=== PATIENT | female | born 1995 | race Caucasian/White ===

== ENCOUNTER 2019-08-04 10:31 | Emergency (ER) | payer OTHER, SELFPAY ==
[2019-08-04 10:41] VITALS: BP 122/64; PULSE 76; RESP 16; TEMP 37.2; O2SAT 98
--- NOTE | 2019-08-04 10:53 | ED.GENADULT ---
HPI - General Adult General Chief complaint: Unspecified Stated complaint: Hemorrhoids/L/Hand numb Time Seen by Provider: 08/04/19 10:53 History of Present Illness HPI narrative: 23-year-old says she 26 weeks female presents with complaints of hemorrhoids 23-year-old Related Data Home Medications Medication Instructions Recorded Confirmed vit no.[id number] 1 tablet PO DAILY 08/04/19 08/04/19 [Classic ] Allergies Allergy/AdvReac Type Severity Reaction Status Date / Time morphine Allergy Unknown Hives Verified 08/04/19 10:48 Course Vital Signs Vital signs: Vital Signs Temperature 37.2 C 08/04/19 10:41 Pulse Rate 76 08/04/19 10:41 Respiratory Rate 16 08/04/19 10:41 Blood Pressure 122/64 08/04/19 10:41 Pulse Oximetry 98 08/04/19 10:41 Temperature 37.2 C 08/04/19 10:41 Pulse Rate 76 08/04/19 10:41 Respiratory Rate 16 08/04/19 10:41 Blood Pressure 122/64 08/04/19 10:41 Pulse Oximetry 98 08/04/19 10:41 Medical Decision Making Vital Signs Vital Signs: Vital Signs Temperature 37.2 C 08/04/19 10:41 Pulse Rate 76 08/04/19 10:41 Respiratory Rate 16 08/04/19 10:41 Blood Pressure 122/64 08/04/19 10:41 Pulse Oximetry 98 08/04/19 10:41 Temperature 37.2 C 08/04/19 10:41 Pulse Rate 76 08/04/19 10:41 Respiratory Rate 16 08/04/19 10:41 Blood Pressure 122/64 08/04/19 10:41 Pulse Oximetry 98 08/04/19 10:41 Discharge Plan Discharge Clinical Impression: External hemorrhoids Patient Disposition: Home, Self-Care Condition: Stable Instructions: Hemorrhoids (ED) Additional Instructions: -Eat lots of fruits, vegetables, and other foods with fiber. Fiber helps to increase bowel movements. You need 20 to 35 grams of fiber a day to keep your bowel movements regular. If you do not get enough fiber from your diet, you can take fiber powders, wafers, or pills. These include psyllium seed (sample brand names: Metamucil, Konsyl), methylcellulose (sample brand name: Citrucel), polycarbophil (sample brand name: FiberCon), and wheat dextrin (sample brand name: Benefiber). -Take medicines called stool softeners such as docusate sodium (sample brand names: Colace, Dulcolax). These medicines increase the number of bowel movements you have. They are safe to take and they can prevent problems later. -Refrain from straining or lingering on the toilet. -Regular physical exercise. -Aoid medications that can cause constipation or diarrhea. -Limit their intake of fatty foods and alcohol, which can exacerbate constipation. -Sitz bath 3-4 times a day as well FOLLOW UP WITH YOUR PRIMARY MD, CALL IN AM TO SCHEDULE AN APPOINTMENT. SEEK EMERGENCY ROOM CARE FOR NUMBNESS OR TINGLING OF EXTREMITIES PLEASE SEEK MEDICAL ATTENTION IF YOU HAVE SHORTNESS OF BREATH OR PAIN WITH BREATHING, FEVER OF 100.4 F ORAL OR HIGHER, NOT BETTER WITH FEVER MEDICATION, INCREASE RECTAL PAIN, RECTAL BLEEDING, ABDOMINAL OR BACK PAIN, REPEATED VOMITING; UNABLE TO KEEP LIQUIDS DOWN, UNABLE TO URINATE, COUGHING UP BLOOD OR INCREASING AMOUNTS OF COLORED SPUTUM, WEAKNESS, DROWSINESS, HEADACHE, FACIAL PAIN, EAR PAIN OR STIFF NECK, LOWER LEG SWELLING, TENDERNESS, REDNESS OR PAIN. Prescriptions: No Action Classic 28 mg iron- 800 mcg Tablet 1 tablet PO DAILY RF: 0 Follow-up/Referrals: Lorraine,Cheryl Peng MD [Primary Care Provider] - Time of Disposition: 11:18
--- NOTE | 2019-08-04 11:26 | ED.GENADULT ---
HPI - General Adult General Chief complaint: Unspecified Stated complaint: Hemorrhoids/L/Hand numb Time Seen by Provider: 08/04/19 10:53 Source: patient and RN notes reviewed Mode of arrival: ambulatory Limitations: no limitations History of Present Illness HPI narrative: 23-year-old 26 weeks female presents with complaints hemorrhoids for the past 5 years. Warm sitz bath, , and Tucks with relief. Symptoms increased over the last 24 hours with heart rate and increased pain. Denies rectal bleeding. Denies inflammatory bowel disease, or rectal polyps. Denies difficulty having bowel movements, last bowel movement was yesterday a.m. without any difficulties and has had bowel movements daily. Denies rectal trauma. Denies night sweats, fever, or weight loss, tenesmus, constipation, or diarrhea. Denies fever or chills. Denies dysuria or hematuria. Denies nausea, vomiting, abdominal pain. Tolerating po intake well. Denies history of hemorrhoids, Family history of rectal bleeding. Denies nausea or vomiting. Complains of numbness and swelling to left anterior hand and fourth and fifth fingers (ring and baby) for approximately 30-40 minutes this am. No treatment. Swelling and numbness went away on is own. Denies known injuries or trauma. Denies weakness, numbness and tingling at this time. Denies radiating pain. Denies immobility. Denies discoloration. Denies exacerbating factors. Dominant hand is Right hand. Some parts of this dictation were generated by voice recognition software and may contain typographical and/or grammatical inaccuracies. ROS: CONSTITUTIONAL: Denies fever, chills, sweats. EYES: Denies visual changes, redness, discharge. ENT: Denies rhinorrhea, congestion, sore throat, otalgia. CARDIOVASCULAR: Denies chest pain, palpitations, edema. RESPIRATORY: Denies dyspnea, wheezing, cough. GASTROINTESTINAL: Denies abdominal pain, nausea, vomiting, diarrhea. Complains of hemorrhoids. GENITOURINARY: Denies dysuria, hematuria, abnormal discharge SKIN: Denies rash or itching. MUSCULOSKELETAL: Denies acute back pain or myalgia. Complains of numbness and swelling to left anterior hand and fourth and fifth fingers (ring and baby). NEUROLOGIC: Denies numbness or focal weakness. PSYCHIATRIC: Denies anxiety or depression. PMFSH: At time of signature, agree with nurse past medical, surgical, social, and family history. There is no relevant family history pertinent to the presenting complaint. I reviewed PM today at 10:55 Medical History: History Hemorrhoids Surgical History: Tonsillectomy, Adenoidectomy, Dilation and Curettage Family Medical History No significant Family History Social History Smokes 1 PPD for 8 years, Denies Alcohol usage, Smokes marijuana, Unemployed Exam: GENERAL: This is a well-nourished, well-developed patient, in no apparent distress. Talks in full sentences and ambulates with steady gait without dyspnea. HEAD: normocephalic, atraumatic. EYES: PERRL. Sclera clear/white. Vision is grossly intact. EARS: External ears normal, auditory canals clear and without drainage, TMs normal without perforation. Hearing grossly intact. NOSE: External nose normal with no obvious nasal discharge, nares without redness, no rhinorrhea. THROAT: Mucous membranes moist, posterior pharynx clear. NECK: Neck supple, non-tender without lymphadenopathy, masses or thyromegaly. CARDIOVASCULAR: Regular rate and rhythm without murmurs, gallops, or rubs. RESPIRATORY: Clear to auscultation. Breath sounds equal bilaterally. No wheezes, rales, or rhonchi. GASTROINTESTINAL: Abdomen soft, non-tender, nondistended. Bowel sounds are active. No hepato-splenomegaly, or palpable masses. No guarding. RECTAL EXAM: Assessment completed with nurse replanting machine operator with Kira on LT lateral decubitus: skin intact, 2 small soft external hemorrhoids, no erythema, no fissures, skin tags, or discharge noted. BRENNEN noted normal sphincter tone and no bleeding.
--- NOTE | 2019-08-04 11:32 | PC.NURSE ---
1100 patient has an external hemorrhoid. no bleeding noted. Left hand is not swollen or painful at this time. No numbness in hand at this time.
== END 2019-08-04 11:30 | disposition home or self-care (01) ==
PROVIDERS: Emergency Provider Nurse Practitioner Family; PCP Family Medicine
DX: O22.42 Hemorrhoids in pregnancy, second trimester (principal); Z3A.26 26 weeks gestation of pregnancy
CPT/HCPCS: 99211; G0463

== ENCOUNTER 2020-06-16 14:24 | Emergency (ER) | payer OTHER, SELFPAY ==
[2020-06-16 14:42] VITALS: BP 108/85; PULSE 76; RESP 18; TEMP 36.2; O2SAT 100
--- NOTE | 2020-06-16 14:47 | ED.GENADULT ---
HPI - General Adult General Chief complaint: Medical Clearance Stated complaint: hemorrhoids Time Seen by Provider: 06/16/20 14:47 Source: patient and RN notes reviewed Mode of arrival: ambulatory Limitations: no limitations History of Present Illness HPI narrative: 24-year-old female presents with complaints of hemorrhoids for the past 6 years. Kira reports increasing symptoms over the past 3 days. Warm sitz baths, tucks, witch jaun's, and suppositories without relief. Denies inflammatory bowel disease or rectal polyps. LBM 06/15/20, had to push to assist with removal of stool. Denies rectal intercourse. Denies fever, weight loss, tenesmus, or diarrhea. Denies dysuria. LMP unknown due to Depo-Provera injections, last in April which patient complains of bleeding since then. The patient reports she have not been diagnosed with COVID-19. The patient reports she is not waiting for the results of a COVID-19 lab test. The patient reports she do not have chills, weakness, or fatigue. The patient reports she do not have a new or worsening cough or shortness of breath. Denies chest pain. The patient reports she do not have any rhinorrhea, congestion, sore throat, loss of taste, nausea, vomiting, abdominal pain, and diarrhea. Tolerating po intake well. Denies recent traveling. Denies concerns for COVID-19 or exposures been home with limited outdoor exposure except for essential household needs, work, and return home. At this time, patient is not suspected of having COVID-19. Some parts of this dictation were generated by voice recognition software and may contain typographical and/or grammatical inaccuracies. Related Data Home Medications Medication Instructions Recorded Confirmed medroxyprogesterone 150 mg IM USEASDIRECTD 06/16/20 06/16/20 quetiapine 25 mg PO DAILY 06/16/20 06/16/20 Allergies Allergy/AdvReac Type Severity Reaction Status Date / Time morphine Allergy Intermediate Swelling Verified 06/16/20 14:40 Review of Systems Review of Systems: Narrative: CONSTITUTIONAL: Denies fever, chills, sweats. EYES: Denies visual changes, redness, discharge. ENT: Denies rhinorrhea, congestion, sore throat, otalgia. CARDIOVASCULAR: Denies chest pain, palpitations, edema. RESPIRATORY: Denies dyspnea, wheezing, cough. GASTROINTESTINAL: Denies abdominal pain, nausea, vomiting, diarrhea. Complains of hemorrhoids. SKIN: Denies rash or itching. MUSCULOSKELETAL: Denies acute back pain, joint pain, or myalgia. NEUROLOGIC: Denies numbness or focal weakness. PSYCHIATRIC: Denies anxiety or depression. All other systems reviewed are negative, except as documented in HPI and below. REPLACED BY [facility] Past Medical History Medical History (Updated 06/16/20 @ 15:20 by MILTON Skelton) Hemorrhoids Normal vaginal delivery X2 Surgical History Surgical History (Updated 06/16/20 @ 15:06 by MILTON Skelton) History of tonsillectomy Family History Family History (Updated 06/16/20 @ 15:08 by MILTON Skelton) Father Unknown family medical history Mother , Drug overdose Medical history unknown Social History Social History (Updated 06/16/20 @ 15:09 by MILTON Skelton) Years smoked: 8 Smoking status: Current every day smoker Tobacco type: cigarettes Second hand tobacco smoke exposure: No Alcohol intake: never Substance use: never Living arrangements: with family Additional living arrangements comments: lives with grandmother and children Occupation/Education: unemployed Gender identity (if verbalized by the patient): Female Sexual Orientation (if Verbalized by the Patient): Straight or Heterosexual Comments At time of signature, agree with nurse past medical, surgical, social, and family history. There is relevant patient's past medical history pertinent to the presenting complaint, no relevant family history pertinent to the presenting complaint. Exam Karsten
[2020-06-16] MEDS: KETOROLAC (*BKC) 60 MG/2 ML VIAL IM (15:03)
== END 2020-06-16 15:33 | disposition home or self-care (01) ==
PROVIDERS: Emergency Provider Nurse Practitioner Family
DX: K64.8 Other hemorrhoids (principal); F17.210 Nicotine dependence, cigarettes, uncomplicated
CPT/HCPCS: 96372; 99213; G0463; J1885

== ENCOUNTER 2020-11-09 16:09 | Emergency (ER) | payer OTHER, SELFPAY ==
--- NOTE | ~2020-11-09 | XR_ITS ---
EXAMINATION: XR chest 2V DATE: 11/09/2020 17:33 INDICATION: Anterior chest pain and back pain. TECHNIQUE: PA and lateral views of the chest were obtained. COMPARISON: Thoracic spine radiographs dated 02/24/2015 FINDINGS: The lungs remain clear with no focal airspace opacities, pulmonary edema, pleural effusion or pneumot horax. The cardiomediastinal silhouette is normal. Chronic mild anterior wedging of a midthoracic nidhi tebral body, likely T6. IMPRESSION: 1. No acute cardiopulmonary disease. Reviewed, dictated and finalized at location A.
--- NOTE | 2020-11-09 16:16 | ED.CHESTPAIN ---
HPI - Chest Pain General Chief Complaint: Unspecified Stated Complaint: Rib Pain Source: patient and RN notes reviewed Limitations: no limitations History of Present Illness HPI narrative: The Covid unvaccinated patient, who is a marijuana cigarette smoker/nondrinker, presents with right rib/side pain. Patient states she has 1/2-week history of right rib pain associated with chills, possible fever po T100.1. Her children were ill within the last week with temperatures 102?3 F. No cough, wheeze,fever > 100.5, , loss of taste/smell, S OB, wheezing, vomiting/diarrhea, frequency/dysuria/hematuria, recent trips, calf pain/edema, BCPs [she is on IUD]. Patient advised to go to hospital for higher testing [blood, imaging] which she declines/ defers to later- so will treat broadly. Related Data Home Medications Medication Instructions Recorded Confirmed medroxyprogesterone 150 mg IM USEASDIRECTD 06/16/20 06/16/20 quetiapine 25 mg PO DAILY 06/16/20 06/16/20 Allergies Allergy/AdvReac Type Severity Reaction Status Date / Time morphine Allergy Intermediate Swelling Verified 06/16/20 14:40 Review of Systems Review of Systems: Narrative: General/Constitutional: No weight loss, REPORTS POSSIBLE fever Eyes: N0: Redness,discharge Ears/Nose/Throat: No: Epistaxis,ear discharge Respiratory: Denies: Hemoptysis Gastrointestinal: No Vomiting, Bleeding-rectal Skin: No Lumps, eruption Neurologic: No Focal Weakness,Sz Hematologic: Denies: Petechiae/Purpura Psychiatric: No: Suicida ideationl All Other Systems: Reviewed and Negative [facility] Past Medical History Medical History Hemorrhoids Normal vaginal delivery X2 Surgical History Surgical History History of tonsillectomy Family History Family History Father Unknown family medical history Mother , Drug overdose Medical history unknown Social History Social History Years smoked: 8 Smoking status: Current every day smoker Tobacco type: cigarettes Second hand tobacco smoke exposure: No Alcohol intake: never Substance use: never Additional living arrangements comments: lives with grandmother and children Gender identity (if verbalized by the patient): Female Comments At time of signature, agree with nursing past medical, surgical, social and family history. There is no relevant family history pertinent to the presenting complaint Exam Narrative: Exam Narrative: General Appearance: Well appearing, No distress, Conjunctiva clear Mouth/Throat: Normal appearing, Normal lips Supple Respiratory: Airway patent, No respiratory distress CTA; right inferior scapular rib tenderness Cardiovascular: RRR Abdomen: Soft, Non-tender, No massess, Skin: Warm, Dry Neurological: A&O x3, CN II-X intact Psychiatric: Normal mood, Normal affect Course Course Emergency Course: Films visualized, interpreted by radiologist, agree, normal see report Vital Signs Vital signs: Vital Signs Temperature 99.2 F 11/09/20 16:18 Pulse Rate 94 11/09/20 16:18 Respiratory Rate 26 H 11/09/20 16:18 Blood Pressure 124/77 11/09/20 16:18 Pulse Oximetry 100 11/09/20 16:18 Temperature 99.2 F 11/09/20 16:18 Pulse Rate 94 11/09/20 16:18 Respiratory Rate 26 H 11/09/20 16:18 Blood Pressure 124/77 11/09/20 16:18 Pulse Oximetry 100 11/09/20 16:18 MDM - Chest Pain Lab Data Labs: Urine Glucose Negative Reference Range: Negative Urine Bilirubin Negative Reference Range: Negative Urine Ketone Negative Reference Range: Negative Urine Sp
[2020-11-09 16:18] VITALS: BP 124/77; PULSE 94; RESP 26; TEMP 37.3; O2SAT 100
[2020-11-09] MEDS: KETOROLAC (*BKC) 60 MG/2 ML VIAL IM (18:19)
== END 2020-11-09 18:26 | disposition home or self-care (01) ==
PROVIDERS: Emergency Provider Emergency Medicine
DX: R07.81 Pleurodynia (principal); F17.210 Nicotine dependence, cigarettes, uncomplicated
CPT/HCPCS: 71046; 81003; 96372; 99213; G0463; J1885

== ENCOUNTER 2020-11-09 21:48 | Emergency (ER) | payer OTHER, SELFPAY ==
[2020-11-09 22:01] VITALS: BP 127/57; PULSE 81; RESP 18; TEMP 36.4; O2SAT 100
--- NOTE | 2020-11-09 22:07 | ECG_ITS ---
Measurements Intervals [place] Rate: 78 P: 66 VA: 125 QRS: 80 QRSD: 81 T: 52 QT: 358 QTc: 409 Interpretive Statements SINUS RHYTHM WITH SINUS ARRHYTHMIA BASELINE ARTIFACT- I, II, AVR NORMAL ECG Electronically Signed On 11-10-2020 7:07:52 CDT by Roby Thorne D.O.
[2020-11-09 22:22] LABS: Basophils Percent Auto 0.5 % (0.2-1.2); Hematocrit 34.4 % (37.0-47.0); Hemoglobin 11.9 g/dL (12.0-15.0); Immature Granulocyte Absolute 0.01 K/mm3 (0.00-0.031); Immature Granulocyte Percent A 0.3 % (0-0.5); Lymphocytes Absolute Auto 1.48 K/mm3 (0.9-3.2); Lymphocytes Percent Auto 38.3 % (18.3-44.2); Mean Corpuscular HGB Conc 34.6 g/dl (32-36); Mean Corpuscular Hemoglobin 29.8 pg (26-34); Mean Platelet Volume 10.5 fl (7.4-10.4); Monocytes Absolute Auto 0.6 K/mm3 (0.1-0.6); Monocytes Percent Auto 14.8 % (2.6-8.5); Neutrophils Absolute Auto 1.7 K/mm3 (1.3-6.7); Neutrophils Percent Auto 45.1 % (45.5-73.1); Platelet Count Result 170 k/mm3 (150-375); White Blood Count 3.9 K/mm3 (4.5-10.0)
[2020-11-09 22:32] LABS: Anion Gap 11 mmol/L (8-16); Blood Urea Nitrogen 6 mg/dL (7-17); Calcium 9.2 mg/dL (8.4-10.2); Carbon Dioxide 19 mmol/L (22-30); Chloride 113 mmol/L (98-107); Estimated CRCL calculation 116 ml/min; Estimated Glomerular Filt Rate > 60; Glucose 111 mg/dL (65-105); Potassium 3.6 mmol/L (3.4-5.0); Sodium 143 mmol/L (137-145)
[2020-11-09 22:44] LABS: Troponin I < 0.012 ng/mL (0.000-0.034)
[2020-11-09 22:47] LABS: Prothrombin Time 13.9 Seconds (11.1-14.7)
[2020-11-09 22:48] LABS: Partial Thromboplastin Time 31.7 SECONDS (22.3-36.8)
[2020-11-09 22:59] LABS: D Dimer 0.27 ug/mL (<0.48)
[2020-11-10] VITALS: BP 122/79; PULSE 58; RESP 16; O2SAT 100
--- NOTE | 2020-11-10 00:05 | ED.GENADULT ---
HPI - General Adult General Chief complaint: Shortness of Breath/Dyspnea Stated complaint: SOB, CP Time Seen by Provider: 11/09/20 23:53 Source: patient Mode of arrival: ambulatory Limitations: no limitations History of Present Illness HPI narrative: 24-year-old with no major medical problems here with complaints of midsternal chest pain on and off since last 1 day. Patient states that she went to [facility] had an x-ray done was told that it could be a pleuritic pain versus blood clot. Onset (ago): day(s) (1) Location: chest Severity: mild Quality: aching Exacerbating factors: other (Breathing) Associated symptoms: denies other symptoms Related Data Home Medications Medication Instructions Recorded Confirmed medroxyprogesterone 150 mg IM USEASDIRECTD 06/16/20 06/16/20 quetiapine 25 mg PO DAILY 06/16/20 06/16/20 Allergies Allergy/AdvReac Type Severity Reaction Status Date / Time morphine Allergy Intermediate Swelling Verified 06/16/20 14:40 Review of Systems Review of Systems: All systems reviewed & are unremarkable except as noted in HPI and below Constitutional: Constitutional: Reports no additional constitutional complaints Eyes: Eyes: Reports no additional eye complaints ENT: Reports system reviewed and no additional complaints, except as documented Cardiovascular: Cardiovascular: Reports no additional cardiovascular complaints Respiratory: Respiratory: Reports as per HPI Gastrointestinal: Gastrointestinal: Reports no additional gastrointestinal complaints Musculoskeletal: Musculoskeletal: Reports no additional musculoskeletal complaints Neurologic: Reports system reviewed and no additional complaints, except as documented Psychiatric: Psychiatric: Reports no additional psychiatric complaints PMFSH Past Medical History Medical History Hemorrhoids Normal vaginal delivery X2 Surgical History Surgical History History of tonsillectomy Family History Family History Father Unknown family medical history Mother , Drug overdose Medical history unknown Social History Social History Years smoked: 8 Smoking status: Current every day smoker Tobacco type: cigarettes Second hand tobacco smoke exposure: No Alcohol intake: never Substance use: never Additional living arrangements comments: lives with grandmother and children Gender identity (if verbalized by the patient): Female Exam Narrative: Exam Narrative: GENERAL: Well-appearing, well-nourished, and in no acute distress. HEAD: Normocephalic, atraumatic. EYES: PERRLA and EOMI. ENT: Nares clear, no rhinorrhea or epistaxis. Mucous membranes moist. NECK: Supple. CHEST: Clear to auscultation. No respiratory distress. HEART: Regular rate and rhythm. No murmur heard. Normal peripheral pulses. ABDOMEN: Soft, nontender, nondistended, normal active bowel sounds. EXTREMITIES: Normal range of motion. No edema. SKIN: Warm, dry, no rash. NEURO: No focal deficits. Alert and oriented x3. PSYCH: Normal mood and affect. Course Course Emergency Course: I discussed lab work and x-ray findings from yesterday with the patient. Her pain is more musculoskeletal versus pleuritic. Advised her to continue home medication. Vital Signs Vital signs: Vital Signs Temperature 36.4 C 11/09/20 22:01 Pulse Rate 81 11/09/20 22:01 Respiratory Rate 18 11/09/20 22:01 Blood Pressure 127/57 L 11/09/20 22:01 Pulse Oximetry 100 11/09/20 22:01 Temperature 36.4 C 11/09/20 22:01 Pulse Rate 81 11/09/20 22:01 Respiratory Rate 18 11/09/20 22:01 Blood Pressure 127/57 L 11/09/20 22:01 Pulse Oximetry 100 11/09/20 22:01 Medical Decision Making Vital Signs Vital Signs: Vital Signs Temper
== END 2020-11-10 00:20 | disposition home or self-care (01) ==
PROVIDERS: Emergency Provider Family Medicine
DX: R07.81 Pleurodynia (principal); F17.210 Nicotine dependence, cigarettes, uncomplicated
CPT/HCPCS: 36415; 71046; 80048; 81003; 84484; 85025; 85380; 85610; 85730; 93005; 96372; 99284; J1885

== ENCOUNTER 2021-02-18 11:12 | Emergency (ER) | payer OTHER, SELFPAY ==
[2021-02-18 12:06] VITALS: BP 117/69; PULSE 64; RESP 18; TEMP 36.4; O2SAT 100
--- NOTE | 2021-02-18 12:42 | ED.URI ---
HPI - URI/Sore Throat General Chief Complaint: Upper Respiratory Infection Stated Complaint: sore throat History of Present Illness HPI Narrative: This is a 25-year-old female comes in complaining of a headache states that it started 3 days ago/she has been having a cough runny nose patient denies taking anything except for some [place] denies any fever no nausea no vomiting no diarrhea. Related Data Home Medications Medication Instructions Recorded Confirmed quetiapine 25 mg PO DAILY 06/16/20 06/16/20 quetiapine 02/18/21 Allergies Allergy/AdvReac Type Severity Reaction Status Date / Time morphine Allergy Intermediate Swelling Verified 06/16/20 14:40 Review of Systems Review of Systems: ENT: Cough, congestion, sore throat All systems reviewed & are unremarkable except as noted in HPI and below PMFSH Past Medical History Medical History Hemorrhoids Normal vaginal delivery X2 Surgical History Surgical History History of tonsillectomy Family History Family History Father Unknown family medical history Mother , Drug overdose Medical history unknown Social History Social History Years smoked: 8 Smoking status: Current every day smoker Tobacco type: cigarettes Second hand tobacco smoke exposure: No Alcohol intake: never Substance use: never Additional living arrangements comments: lives with grandmother and children Gender identity (if verbalized by the patient): Female Sexual Orientation (if Verbalized by the Patient): Straight or Heterosexual Comments At time as signature, I have reviewed and agree with nursing past medical, social, surgical and family history. Please see nursing chart for further information. There is no relevant family history pertinent to the presenting complaint. Exam Narrative: GENERAL:Well-appearing, well-nourished, and in no acute distress. HEAD:Normocephalic, atraumatic. EYES: PERRLA and EOMI. ENT: Nares clear, mild rhinorrhea no epistaxis. Mucous membranes moist. Pharyngeal erythema NECK: Supple. CHEST: Clear to auscultation. No respiratory distress. HEART: Regular rate and rhythm. ABDOMEN: Soft, nontender, nondistended, normal active bowel sounds. EXTREMITIES: Normal range of motion. No edema. SKIN: Warm, dry, no rash. NEURO: No focal deficits. Alert and oriented x3. Course RN CCU/PA Physician Supervision Strep negative Vital Signs Vital signs: Vital Signs Temperature 97.5 F L 02/18/21 12:06 Pulse Rate 64 02/18/21 12:06 Respiratory Rate 18 02/18/21 12:06 Blood Pressure 117/69 02/18/21 12:06 Pulse Oximetry 100 02/18/21 12:06 Temperature 97.5 F L 02/18/21 12:06 Pulse Rate 64 02/18/21 12:06 Respiratory Rate 18 02/18/21 12:06 Blood Pressure 117/69 02/18/21 12:06 Pulse Oximetry 100 02/18/21 12:06 MDM - URI/Sore Throat Differential Diagnosis Differential diagnosis: Likely upper respiratory infection, croup, otitis media, sinusitis, viral infection, bronchitis, influenza and pharyngitis Lab Data Labs: Strep Screen Presumptive Negative *(Reference Range: Negative)* Discharge Plan Discharge Clinical Impression: Viral infection Allergic rhinitis Qualifiers: Allergic rhinitis trigger: unspecified Allergic rhinitis seasonality: seasonal Qualified Code(s): J30.2 - Other seasonal allergic rhinitis Patient Disposition: Home, Self-Care Condition: Stable Instructions: Antibiotic Form, Allergic Rhinitis (ED), Viral Syndrome (ED) Additional Instructions: Viral illness may last between 7-12days; antibiotic is NOT recommended at this time. Recommend antihistamine such as Benadryl at night time and Claritin/Zyrtec/Trini d
== END 2021-02-18 13:08 | disposition home or self-care (01) ==
PROVIDERS: Emergency Provider Nurse Practitioner Family
DX: J30.2 Other seasonal allergic rhinitis (principal); B34.9 Viral infection, unspecified; F17.210 Nicotine dependence, cigarettes, uncomplicated
CPT/HCPCS: 87081; 87880; 99213; G0463

== ENCOUNTER 2021-03-09 12:54 | Emergency (ER) | payer OTHER, SELFPAY ==
[2021-03-09 13:02] VITALS: BP 117/67; PULSE 76; RESP 16; TEMP 37.1; O2SAT 99
--- NOTE | 2021-03-09 13:47 | ED.GENADULT ---
HPI - General Adult General Chief complaint: Unspecified Stated complaint: hemorrhoids Source: patient Mode of arrival: ambulatory Limitations: no limitations History of Present Illness HPI narrative: Patient is a 25 year old female who presents complaining of hemorrhoids. Patient reports increased pain over the past week. She reports using multiple [id number]-[id number] hemorrhoid creams and treatments without relief. Patient has had the same problems in the past and reports initially seeing a surgeon but not doing follow-up appointment. Patient is tearful and uncomfortable. MD complaint: Hemorrhoid Related Data Home Medications Medication Instructions Recorded Confirmed quetiapine 25 mg PO DAILY 06/16/20 03/09/21 Allergies Allergy/AdvReac Type Severity Reaction Status Date / Time morphine Allergy Intermediate Swelling Verified 03/09/21 13:01 Review of Systems Review of Systems: CONSTITUTIONAL: Denies fever, chills, or sweats. EYES: Denies visual changes, redness, or discharge. ENT: Denies rhinorrhea, congestion, sore throat, or otalgia. CARDIOVASCULAR: Denies chest pain, palpitations, or edema. RESPIRATORY: Denies cough or dyspnea. GASTROINTESTINAL: Denies abdominal pain, nausea, vomiting, or diarrhea. Reports hemorrhoid GENITOURINARY: Denies dysuria or hematuria. SKIN: Denies rash or itching. MUSCULOSKELETAL: Denies back pain, joint pain, or myalgia. NEUROLOGIC: Denies headache, numbness, dizziness, or weakness. PSYCHIATRIC: Denies anxiety or depression. [facility] Past Medical History Medical History Hemorrhoids Normal vaginal delivery X2 Surgical History Surgical History History of tonsillectomy Family History Family History Father Unknown family medical history Mother , Drug overdose Medical history unknown Social History Social History Years smoked: 8 Smoking status: Current every day smoker Tobacco type: cigarettes Second hand tobacco smoke exposure: No Alcohol intake: never Substance use: never Additional living arrangements comments: lives with grandmother and children Gender identity (if verbalized by the patient): Female Sexual Orientation (if Verbalized by the Patient): Straight or Heterosexual Comments At the time of signature, I have reviewed and agree with nursing past medical, surgical, social, and family history unless otherwise noted. Please see nursing chart for further information. There is no relevant family history pertinent to the presenting complaint. Exam Narrative: GENERAL: Well-appearing, well-nourished, and in no acute distress. HEAD: Normocephalic, atraumatic. EYES: EOMI. No redness or drainage. Conjunctiva are normal. ENT: Mucous membranes pink and moist. CHEST: No respiratory distress. HEART: Regular rate and rhythm. GI: Soft, nontender without rebound, or guarding. No distention. Bowel sounds normal in all quadrants. Rectal: Moderate sized external hemorrhoid, no erythema, no fissures, skin tags, bleeding or discharge noted. MUSCULOSKELETAL: No bony tenderness. EXTREMITIES: Normal range of motion. No edema. SKIN: Warm, dry, no rash. NEURO: No focal deficits. Alert and oriented x3. Gait steady. PSYCH: Normal affect. No signs of depression or anxiety. Course Vital Signs Vital signs: Vital Signs Temperature 37.1 C 03/09/21 13:02 Pulse Rate 76 03/09/21 13:02 Respiratory Rate 16 03/09/21 13:02 Blood Pressure 117/67 03/09/21 13:02 Pulse Oximetry 99 03/09/21 13:02 Temperature 37.1 C 03/09/21 13:02 Pulse Rate 76 03/09/21 13:02 Respiratory Rate 16 03/09/21 13:02 Blood Pressure 117/67 03/09/21 13:02 Pulse Oximetry 99 03/09/21 13:02 Reviewed Medical Decision Making Macey
== END 2021-03-09 14:11 | disposition home or self-care (01) ==
PROVIDERS: Emergency Provider Nurse Practitioner
DX: K64.4 Residual hemorrhoidal skin tags (principal); F17.210 Nicotine dependence, cigarettes, uncomplicated
CPT/HCPCS: 99213; G0463

== ENCOUNTER 2021-06-13 14:30 | Emergency (ER) | payer OTHER, SELFPAY ==
[2021-06-13 14:39] VITALS: BP 132/82; PULSE 73; RESP 18; TEMP 36.7; O2SAT 100
[2021-06-13 14:40] VITALS: BP 132/82; PULSE 73; RESP 18; TEMP 36.7; O2SAT 100
--- NOTE | 2021-06-13 14:42 | ED.EAR ---
HPI - Ear Problem General Chief complaint: Ear Stated complaint: ear pain Time Seen by Provider: 06/13/21 14:42 Source: patient, RN notes reviewed and old records reviewed Mode of arrival: ambulatory Limitations: no limitations History of Present Illness HPI Narrative: 25-year-old female presents to the [facility] with bilateral ear pain. Patient starts about a week ago she was cleaning out her left ear with a Howard pin when she started having some severe pain. States pain has since moved to her right ear. Has a history of depression and a tonsillectomy. Denies fevers. No nausea vomiting or diarrhea. No chest pain or abdominal pain MD Complaint: ear pain, ear discharge, decreased hearing and foreign body Location: bilateral Duration: constant Relieving factors: nothing Related Data Home Medications Medication Instructions Recorded Confirmed quetiapine 50 mg PO DAILY 06/13/21 06/13/21 Allergies Allergy/AdvReac Type Severity Reaction Status Date / Time morphine Allergy Intermediate Swelling Verified 06/13/21 14:38 Review of Systems Review of Systems: All systems reviewed & are unremarkable except as noted in HPI and below Constitutional: Constitutional: Reports no additional constitutional complaints, Denies chills and Denies fever(s) Eyes: Eyes: Reports no additional eye complaints ENT: Reports as per HPI, Denies change in voice, Denies dental pain, Denies vertigo, Denies dizziness and Denies throat swelling Comments: Ear pain bilateral Cardiovascular: Cardiovascular: Denies no additional cardiovascular complaints, Denies chest pain and Denies dyspnea Respiratory: Respiratory: Denies no additional respiratory complaints, Denies cough and Denies dyspnea Gastrointestinal: Gastrointestinal: Reports no additional gastrointestinal complaints, Denies abdominal pain, Denies nausea and Denies vomiting Musculoskeletal: Musculoskeletal: Reports no additional musculoskeletal complaints Integumentary/Breasts: Skin/Breast: Reports system reviewed and no additional complaints, except as docu Neurologic: Reports system reviewed and no additional complaints, except as documented, Denies vertigo and Denies dizziness Psychiatric: Psychiatric: Reports no additional psychiatric complaints Allergic/Immunologic: Allergic/Immunologic: Reports no additional allergic/immunologic complaints and Denies throat swelling PMFSH Past Medical History Medical History (Updated 06/13/21 @ 15:26 by Sandra Diaz) Hemorrhoids Normal vaginal delivery X2 depression Surgical History Surgical History History of tonsillectomy Family History Family History Father Unknown family medical history Mother , Drug overdose Medical history unknown Social History Social History Years smoked: 8 Smoking status: Current every day smoker Tobacco type: cigarettes Second hand tobacco smoke exposure: No Alcohol intake: never Substance use: never Additional living arrangements comments: lives with grandmother and children Gender identity (if verbalized by the patient): Female Sexual Orientation (if Verbalized by the Patient): Straight or Heterosexual Comments At the time of my signature, I reviewed and agree with the nursing past medical, surgical, social, and family history. There is no relevant family history pertinent to the patient complaint. Exam Const: General: healthy appearing, no acute distress and alert Nutritional Appearance: well nourished Orientation/consciousness: patient oriented x3 Limitations: no limitations HENMT: Head: normal to inspection Ears: external ears normal, TM's normal bilaterally and Abnormal EAC present excessive cerumen bilateral, erythema on the left and edema on the left; no otic discharge General nose exam: Norm
== END 2021-06-13 15:02 | disposition home or self-care (01) ==
PROVIDERS: Emergency Provider Nurse Practitioner; PCP Physician Assistant
DX: H65.03 Acute serous otitis media, bilateral (principal); H60.90 Unspecified otitis externa, unspecified ear; F17.210 Nicotine dependence, cigarettes, uncomplicated
CPT/HCPCS: 99213; G0463

== ENCOUNTER 2021-12-07 07:28 | Emergency (ER) | payer OTHER, SELFPAY ==
--- NOTE | ~2021-12-07 | XR_ITS ---
EXAMINATION: XR chest 2V DATE: 12/07/2021 07:51 INDICATION: Chest pain TECHNIQUE: PA and lateral views of the chest were obtained. COMPARISON: Chest radiograph dated 11/09/2020 FINDINGS: The lungs remain clear with no focal airspace opacities, pulmonary edema, pleural effusion or pneumot horax. The cardiomediastinal silhouette is normal. Mild thoracic spondylosis with unchanged mild ante rior wedging of a midthoracic vertebral body, likely T6. IMPRESSION: 1. No acute cardiopulmonary disease. Reviewed, dictated and finalized at location A.
--- NOTE | 2021-12-07 07:31 | ECG_ITS ---
Measurements Intervals [place] Rate: 75 P: 56 NC: 130 QRS: 60 QRSD: 86 T: 38 QT: 389 QTc: 435 Interpretive Statements SINUS RHYTHM BASELINE ARTIFACT- I, III, AVR, AVL, AVF NORMAL ECG Electronically Signed On 12-07-2021 8:02:37 CDT by Roby Thorne D.O.
[2021-12-07 07:35] VITALS: BP 120/73; PULSE 70; RESP 17; TEMP 36.6; O2SAT 100
--- NOTE | 2021-12-07 07:42 | ED.CHESTPAIN ---
HPI - Chest Pain General Chief Complaint: Chest Pain Stated Complaint: chest pain Time Seen by Provider: 12/07/21 07:33 History of Present Illness HPI narrative: 25-year-old female presents here stating that she has been having sharp chest pain midsternal that seems to radiate to her back and shoulders, restarted last night when she got home, improved, and then this morning she woke up and had similar symptoms. She states last when she had something similar she was told that she may have had some fluid in her lungs, denies any nausea or vomiting, states that she has some shortness of breath associated with this but does not hurt to take deep breaths, she does state that she has been slightly anxious and stressed out. No personal family history of cardiac issues or blood clots. Related Data Home Medications Medication Instructions Recorded Confirmed quetiapine 50 mg tablet 50 mg PO DAILY 06/13/21 06/13/21 Allergies Allergy/AdvReac Type Severity Reaction Status Date / Time morphine Allergy Intermediate Swelling Verified 12/07/21 07:40 Review of Systems Review of Systems: CONST: No fever. HEENT: No sore throat C/V: Chest pain RESP: No cough GI: No nausea or vomiting : No dysuria. M/S: Discomfort in bilateral shoulders SKIN: No rash. NEURO: [No headache or focal numbness or weakness] PSYCH: [No depression] [facility] Past Medical History Medical History Hemorrhoids Normal vaginal delivery X2 depression Surgical History Surgical History History of tonsillectomy Family History Family History Father Unknown family medical history Mother , Drug overdose Medical history unknown Social History Social History Years smoked: 8 Smoking status: Current every day smoker Tobacco type: cigarettes Second hand tobacco smoke exposure: No Alcohol intake: never Substance use: never Additional living arrangements comments: lives with grandmother and children Gender identity (if verbalized by the patient): Female Sexual Orientation (if Verbalized by the Patient): Straight or Heterosexual Exam Narrative: EXAMINATION OF ORGAN SYSTEMS/BODY AREAS: Constitutional: Vital signs per nursing GENERAL:[No acute distress, non-toxic appearing.] HEAD: Normal with no signs of head trauma. EYES: EOMI, conjunctiva normal ENT: Hearing grossly intact LUNGS: Nonlabored breathing. HEART: [Regular rate and rhythm] ABD: [Soft], [tender to palpation] EXT: Normal range of motion SKIN: [No rashes or lesions.] NEURO: [Alert and oriented x 3. No gross focal sensory or strength deficits.] PSYCH: Appears slightly anxious Course Vital Signs Vital signs: Vital Signs Temperature 97.8 F 12/07/21 07:35 Pulse Rate 70 12/07/21 07:35 Respiratory Rate 17 12/07/21 07:35 Blood Pressure 120/73 12/07/21 07:35 Pulse Oximetry 100 12/07/21 07:35 Oxygen Delivery Room Air 12/07/21 07:35 Temperature 97.8 F 12/07/21 07:35 Pulse Rate 64 12/07/21 08:48 Respiratory Rate 16 12/07/21 08:48 Blood Pressure 112/62 12/07/21 08:48 Pulse Oximetry 100 12/07/21 08:48 Oxygen Delivery Room Air 12/07/21 07:35 MDM - Chest Pain MDM Narrative Medical decision making narrative: 25-year-old female presenting with chest pain that seems to radiate to her back, she states that this is similar to her usual anxiety except that today she is also having the pain up to her shoulders which is worse than usual, vital signs are stable, exam shows well-appearing patient who is resting comfortably in bed, clear lungs bilaterally, soft nontender abdomen and chest. I suspect likely anxiety versus less likely ACS/RI given her age and no risk factors, very unlikely PE as she is PERC negative, unlikely pneumo
[2021-12-07 07:46] LABS: Basophils Percent Auto 0.4 % (0.2-1.2); Eosinophils Absolute Auto 0.2 K/mm3 (0-0.3); Eosinophils Percent Auto 3.1 % (0-4.4); Hematocrit 35.4 % (37.0-47.0); Hemoglobin 12.1 g/dL (12.0-15.0); Immature Granulocyte Absolute 0.02 K/mm3 (0.00-0.031); Immature Granulocyte Percent A 0.3 % (0-0.5); Lymphocytes Absolute Auto 2.25 K/mm3 (0.9-3.2); Lymphocytes Percent Auto 32.8 % (18.3-44.2); Mean Corpuscular HGB Conc 34.2 g/dl (32-36); Mean Corpuscular Hemoglobin 30.3 pg (26-34); Mean Corpuscular Volume 88.7 fl (80-100); Mean Platelet Volume 10.5 fl (7.4-10.4); Monocytes Absolute Auto 0.6 K/mm3 (0.1-0.6); Monocytes Percent Auto 8.9 % (2.6-8.5); Neutrophils Absolute Auto 3.7 K/mm3 (1.3-6.7); Neutrophils Percent Auto 54.5 % (45.5-73.1); Platelet Count Result 190 k/mm3 (150-375); Red Blood Count 3.99 M/mm3 (4.2-5.4); Red Cell Distribution Width 13.3 % (11.5-14.5); White Blood Count 6.9 K/mm3 (4.5-10.0)
[2021-12-07 07:56] LABS: Alanine Aminotransferase 21 U/L (6-35); Albumin Level 4.4 g/dL (3.5-5.1); Alkaline Phosphatase 81 U/L (38-126); Anion Gap 5 mmol/L (8-16); Aspartate Amino Transferase 30 U/L (14-36); Bilirubin,Total < 0.1 mg/dL (0.2-1.3); Blood Urea Nitrogen 10 mg/dL (7-17); Calcium 8.7 mg/dL (8.4-10.2); Carbon Dioxide 27 mmol/L (22-30); Chloride 105 mmol/L (98-107); Estimated CRCL calculation 96 ml/min; Estimated Glomerular Filt Rate > 60; Glucose 91 mg/dL (65-110); Lipase 47 U/L (23-300); Potassium 4.1 mmol/L (3.4-5.0); Sodium 137 mmol/L (137-145)
[2021-12-07 08:03] LABS: SPREG INTERNAL CONTROL Positive; Serum Qual hCG Negative
[2021-12-07 08:07] LABS: INR 1.1; Partial Thromboplastin Time 31.5 SECONDS (22.3-36.8); Prothrombin Time 13.8 Seconds (11.1-14.7)
[2021-12-07 08:08] LABS: Troponin I < 0.012 ng/mL (0.000-0.034)
[2021-12-07 08:48] VITALS: BP 112/62; PULSE 64; RESP 16; O2SAT 100
== END 2021-12-07 08:49 | disposition home or self-care (01) ==
PROVIDERS: Emergency Provider Emergency Medicine
DX: R07.89 Other chest pain (principal); F17.210 Nicotine dependence, cigarettes, uncomplicated
CPT/HCPCS: 36415; 71046; 80053; 83690; 84484; 84703; 85025; 85610; 85730; 93005; 99284

== ENCOUNTER 2022-03-23 10:07 | Emergency (ER) | payer OTHER, SELFPAY ==
[2022-03-23 10:18] VITALS: BP 108/60; PULSE 99; RESP 16; TEMP 37.2; O2SAT 100
--- NOTE | 2022-03-23 11:09 | ED.URI ---
HPI - URI/Sore Throat General Chief Complaint: Upper Respiratory Infection Stated Complaint: uri Time Seen by Provider: 03/23/22 10:59 Source: patient Mode of arrival: ambulatory Limitations: no limitations History of Present Illness HPI Narrative: Patient presents today with a 2-day history of cough, rhinorrhea, congestion. Denies shortness of breath, chest pain. She has tried no [id number] treatment prior to arrival. She is currently 12 weeks , . She does have an [employer]PUT[employer]AME [employer] in [place]. Denies abdominal pain or any complications with the . Related Data Home Medications Medication Instructions Recorded Confirmed quetiapine 50 mg tablet 50 mg PO DAILY 06/13/21 03/23/22 ferrous sulfate 325 mg (65 mg 325 mg DIRECTED 03/23/22 03/23/22 iron) tablet (FeroSul) folic acid 1 mg tablet 1 mg DIRECTED 03/23/22 03/23/22 vits no.126-ferrous fum 1 tablet DIRECTED 03/23/22 03/23/22 28 mg iron-folic acid 800 mcg tablet (Classic ) Allergies Allergy/AdvReac Type Severity Reaction Status Date / Time morphine Allergy Intermediate Swelling Verified 12/07/21 07:40 Review of Systems Review of Systems: CONSTITUTIONAL: Denies body aches, fever, chills, or sweats. EYES: Denies visual changes, redness, or discharge. ENT: Denies sore throat, or otalgia.+ Rhinorrhea, congestion CARDIOVASCULAR: Denies chest pain, palpitations, or edema. RESPIRATORY: Denies dyspnea.+ Cough GASTROINTESTINAL: Denies abdominal pain, nausea, vomiting, or diarrhea. GENITOURINARY: Denies dysuria or hematuria. SKIN: Denies rash, itching, or wounds. MUSCULOSKELETAL: Denies back pain, joint pain, or myalgia. NEUROLOGIC: Denies headache, numbness, tingling, or weakness. PSYCH: Denies depression or anxiety. [facility] Past Medical History Medical History Hemorrhoids Normal vaginal delivery X2 depression Surgical History Surgical History History of tonsillectomy Family History Family History Father Unknown family medical history Mother , Drug overdose Medical history unknown Social History Social History Years smoked: 8 Smoking status: Current every day smoker Tobacco type: cigarettes Second hand tobacco smoke exposure: No Alcohol intake: never Substance use: never Additional living arrangements comments: lives with grandmother and children Gender identity (if verbalized by the patient): Female Sexual Orientation (if Verbalized by the Patient): Straight or Heterosexual Comments At time of signature, I have reviewed and agree with nursing past medical, surgical, social and family history unless otherwise noted. Please see nursing chart for further information. There is no relevant family history pertinent to the presenting complaint Exam Narrative: GENERAL: Ill-appearing, well-nourished, and in no acute distress. HEAD: Normocephalic, atraumatic. EYES: EOMI. No redness or drainage. Conjunctivae normal. ENT: Mucous membranes pink and moist. Nares congested. No rhinorrhea. TMs normal bilaterally. Throat normal. Uvula midline. NECK: Normal AROM. Supple. Left posterior cervical chain lymphadenopathy CHEST: No respiratory distress. Clear to auscultation. HEART: Regular rate and rhythm. No murmur appreciated. EXTREMITIES: Normal range of motion. No edema. SKIN: Warm, dry, no rash. Capillary refill normal. Normal skin turgor. NEURO: No focal deficits. Alert and oriented x3. Gait steady. PSYCH: Normal affect. No signs of depression or anxiety. Course Course Level of Care: Express Care Visit Vital Signs Vital signs: Vital Signs Temperature 99.0 F 03/23/22 10:18 Pulse Rate 99 03/23/22 10:18 Respiratory R
== END 2022-03-23 11:24 | disposition home or self-care (01) ==
PROVIDERS: Emergency Provider Nurse Practitioner; PCP Physician Assistant
DX: O99.511 Diseases of the respiratory system complicating pregnancy, first trimester (principal); Z3A.12 12 weeks gestation of pregnancy; J06.9 Acute upper respiratory infection, unspecified; O99.331 Smoking (tobacco) complicating pregnancy, first trimester; F17.210 Nicotine dependence, cigarettes, uncomplicated
CPT/HCPCS: 99213; G0463

== ENCOUNTER 2023-01-22 17:49 | Emergency (ER) | payer OTHER, SELFPAY ==
[2023-01-22 17:56] VITALS: BP 133/76; PULSE 88; RESP 18; TEMP 36.6; O2SAT 100
--- NOTE | 2023-01-22 19:07 | ED.DIZZY ---
HPI - Dizziness General Chief Complaint: Dizziness Stated Complaint: rash/ dizzy/ eye swelling Time Seen by Provider: 01/22/23 18:50 History of Present Illness HPI Narrative: Patient is a 27-year-old female with no past medical history here today for dizziness and facial swelling. Patient notes that last week she had a diffuse rash over abdomen, chest, back which was faint and had associated erythema. She denies any additional symptoms at that time. She notes that she had used topical anti-itch medication which seemed to help the symptoms. She then notes that over the last few days she has noted some shortness of breath as well as facial swelling which began this morning. The patient's swelling is located around her bilateral eyes. Denies any swelling of her tongue or difficulty swallowing. She is additionally experiencing some dizziness today which she notes is positional in nature. She notes that it felt like she could pass out but she did not. No fever or chills. She does vape and believes her shortness of breath and cough are chronic in nature. No new food exposure. No new medications. No new soaps or detergents. Related Data Home Medications Medication Instructions Recorded Confirmed quetiapine 50 mg tablet 50 mg PO DAILY 06/13/21 03/23/22 ferrous sulfate 325 mg (65 mg 325 mg DIRECTED 03/23/22 03/23/22 iron) tablet (FeroSul) folic acid 1 mg tablet 1 mg DIRECTED 03/23/22 03/23/22 vits no.126-ferrous fum 1 tablet DIRECTED 03/23/22 03/23/22 28 mg iron-folic acid 800 mcg tablet (Classic ) Allergies Allergy/AdvReac Type Severity Reaction Status Date / Time morphine Allergy Intermediate Swelling Verified 12/07/21 07:40 Review of Systems Review of Systems: CONSTITUTIONAL: Denies fever, chills, or sweats. EYES: Denies visual changes, redness, or discharge. eye swelling bilaterally ENT: Denies rhinorrhea, congestion, sore throat, or otalgia. CARDIOVASCULAR: dizziness. Denies chest pain, palpitations, or edema. RESPIRATORY: Cough, shortness of breath. GASTROINTESTINAL: Denies abdominal pain, nausea, vomiting, or diarrhea. GENITOURINARY: Denies dysuria or hematuria. SKIN: rash present last week, now resolved MUSCULOSKELETAL: Denies back pain, joint pain, or myalgia. NEUROLOGIC: Denies headache, numbness, or weakness. PSYCHIATRIC: Denies anxiety or depression. [facility] Past Medical History Medical History Hemorrhoids Normal vaginal delivery X2 depression Surgical History Surgical History History of tonsillectomy Family History Family History Father Unknown family medical history Mother , Drug overdose Medical history unknown Social History Social History Years smoked: 8 Smoking status: Current every day smoker Tobacco type: cigarettes Second hand tobacco smoke exposure: No Alcohol intake: never Substance use: never Living arrangements: with family Additional living arrangements comments: lives with grandmother and children Occupation/Education: unemployed Gender identity (if verbalized by the patient): Female Sexual Orientation (if Verbalized by the Patient): Straight or Heterosexual Exam Narrative: GENERAL: Well-appearing, well-nourished, and in no acute distress. HEAD: Normocephalic, atraumatic. EYES: PERRLA and EOMI. Faint bilateral periorbital swelling, no erythema. No eye injection. ENT: Nares clear. Mucous membranes moist. No pharyngeal swelling. No tongue swelling. NECK: Supple. CHEST: Bilateral wheeze present. No respiratory distress. HEART: Regular rate and rhythm. Normal peripheral pulses. ABDOMEN: Soft, nontender, nondistended. EXTREMITIES: Normal range of motion.
[2023-01-22] MEDS: diphenhydrAMINE HCl CAP 25 MG CAPSULE PO (19:51)
--- NOTE | 2023-01-22 19:52 | PC.NURSE ---
pt refused ECG stating i'm young my heart is fine
[2023-01-22 20:00] VITALS: BP 131/83; PULSE 78; RESP 16; O2SAT 99
== END 2023-01-22 20:00 | disposition home or self-care (01) ==
PROVIDERS: Emergency Provider Student in an Organized Health Care Education/Training Program
DX: T78.40XA Allergy, unspecified, initial encounter (principal); R42 Dizziness and giddiness; F17.290 Nicotine dependence, other tobacco product, uncomplicated
CPT/HCPCS: 99283; A9270

== ENCOUNTER 2023-04-10 09:06 | Emergency (ER) | payer OTHER, SELFPAY ==
--- NOTE | ~2023-04-10 | XR_ITS ---
EXAMINATION: XR chest 2V DATE: 04/10/2023 09:46 INDICATION: Abnormal lung sounds TECHNIQUE: Frontal and lateral views of the chest are obtained COMPARISON: 12/07/2021 FINDINGS: The lungs are free of acute opacities. No pleural effusion or pneumothorax. The cardiomedia stinal silhouette is normal. The visualized bones and soft tissues are unremarkable. IMPRESSION: 1. No acute cardiopulmonary abnormality. Reviewed, dictated and finalized at location B. [facility]
--- NOTE | 2023-04-10 09:11 | ED.URI ---
HPI - URI/Sore Throat General Chief Complaint: Upper Respiratory Infection Stated Complaint: Sinus Time Seen by Provider: 04/10/23 09:10 Source: patient Mode of arrival: ambulatory Limitations: no limitations History of Present Illness HPI Narrative: Patient is a 27-year-old female presents with 3 days of sinus congestion, postnasal drainage, coughing and hot flashes. Patient states there was so much mucus it makes her have coughing fits and vomits. States she has taken a few doses of cold and flu medicine but she does not like taking medicine so she stopped. States she is concerned that symptoms are not improving since it has been 3 days. Has history of asthma but has not used inhaler for some time. Related Data Home Medications Medication Instructions Recorded Confirmed quetiapine 50 mg tablet 50 mg PO DAILY 06/13/21 03/23/22 norethindrone 1 mg-ethinyl tablet 04/10/23 estradiol 20 mcg (24)-iron 75 mg (4) tablet (Galo 24 Fe) Allergies Allergy/AdvReac Type Severity Reaction Status Date / Time morphine Allergy Intermediate Swelling Verified 04/10/23 09:10 Review of Systems Review of Systems: All systems reviewed & are unremarkable except as noted in HPI and below Constitutional: Constitutional: Denies body ache(s), Denies chills, Denies fatigue, Denies fever(s), Denies headache(s), Denies malaise and Denies weakness Eyes: Eyes: Denies blurry vision, Denies itchy eyes and Denies loss of vision ENT: Denies otalgia, Denies headache(s), Reports nasal congestion, Denies sinus pain and Denies sore throat Cardiovascular: Cardiovascular: Denies chest pain, Denies irregular heart rhythm and Denies dyspnea Respiratory: Respiratory: Reports cough and Denies dyspnea Gastrointestinal: Gastrointestinal: Denies abdominal pain, Denies diarrhea, Denies nausea and Reports vomiting Musculoskeletal: Musculoskeletal: Denies back pain, Denies myalgias and Denies arthralgias Integumentary/Breasts: Skin/Breast: Denies pruritus and Denies rash Neurologic: Denies headache(s), Denies loss of vision and Denies weakness Psychiatric: Psychiatric: Reports no additional psychiatric complaints Endocrine: Endocrine: Denies fatigue Allergic/Immunologic: Allergic/Immunologic: Denies itchy eyes PMFSH Past Medical History Medical History Hemorrhoids Normal vaginal delivery X2 depression Surgical History Surgical History History of tonsillectomy Family History Family History Father Unknown family medical history Mother , Drug overdose Medical history unknown Social History Social History Years smoked: 8 Smoking status: Current every day smoker Tobacco type: cigarettes Second hand tobacco smoke exposure: No Alcohol intake: never Substance use: never Living arrangements: with family Additional living arrangements comments: lives with grandmother and children Occupation/Education: unemployed Gender identity (if verbalized by the patient): Female Sexual Orientation (if Verbalized by the Patient): Straight or Heterosexual Comments At time of signature, agree with nursing past medical, surgical, social and family history. There is no relevant family history pertinent to the presenting complaint. Exam Const: General: cooperative, healthy appearing, comfortable, no acute distress and well nourished Nutritional Appearance: well nourished Orientation/consciousness: patient oriented x3 Limitations: no limitations HENMT: Head: normal to inspection, normocephalic and atraumatic Ears: hearing grossly normal bilaterally, external ears normal, TM's normal bilaterally, EAC's normal and no periauricular adenopathy Face/Nose/Sinus: Normal external nose present, Abnormal
[2023-04-10 09:24] VITALS: BP 124/79; PULSE 91; RESP 16; TEMP 37.4; O2SAT 97
== END 2023-04-10 10:00 | disposition home or self-care (01) ==
PROVIDERS: Emergency Provider Nurse Practitioner Family; PCP Physician Assistant
DX: J06.9 Acute upper respiratory infection, unspecified (principal); Z20.822 Contact with and (suspected) exposure to COVID-19; F17.210 Nicotine dependence, cigarettes, uncomplicated; J45.909 Unspecified asthma, uncomplicated
CPT/HCPCS: 71046; 87426; 87804; 99213; C9803; G0463

== ENCOUNTER 2023-09-07 11:48 | Emergency (ER) | payer OTHER, SELFPAY ==
[2023-09-07 11:59] VITALS: BP 110/61; PULSE 71; RESP 18; TEMP 36.8; O2SAT 100
--- NOTE | 2023-09-07 12:07 | ED.GENADULT ---
HPI - General Adult General Chief complaint: Dizziness Stated complaint: Headaches/Dizziness Time Seen by Provider: 09/07/23 12:08 Source: patient, RN notes reviewed and old records reviewed Mode of arrival: ambulatory Limitations: no limitations History of Present Illness HPI narrative: 27-year-old female presents to the [facility] with having abdominal pain that has subsided, nausea, vomiting and diarrhea that has since that subsided for the last 3 days. Today reports a temporal headache bilaterally with no vision changes. Denies fevers. Patient reports occasional dizziness. States that she needs a work note for today and tomorrow Treatments prior to arrival: none Related Data Home Medications Medication Instructions Recorded Confirmed quetiapine 50 mg tablet 50 mg PO DAILY 06/13/21 09/07/23 norethindrone 1 mg-ethinyl 1 tablet DIRECTED 04/10/23 09/07/23 estradiol 20 mcg (24)-iron 75 mg (4) tablet (Galo 24 Fe) lamotrigine 100 mg tablet 100 mg DIRECTED 09/07/23 09/07/23 Allergies Allergy/AdvReac Type Severity Reaction Status Date / Time morphine Allergy Intermediate Swelling Verified 04/10/23 09:10 Review of Systems Review of Systems: All systems reviewed & are unremarkable except as noted in HPI and below Constitutional: Constitutional: Reports as per HPI Eyes: Eyes: Reports no additional eye complaints ENT: Reports system reviewed and no additional complaints, except as documented Cardiovascular: Cardiovascular: Reports no additional cardiovascular complaints, Denies chest pain and Denies dyspnea Respiratory: Respiratory: Reports no additional respiratory complaints, Denies chest congestion, Denies cough and Denies dyspnea Gastrointestinal: Gastrointestinal: Reports as per HPI, Reports abdominal pain, Reports diarrhea, Reports nausea and Reports vomiting Musculoskeletal: Musculoskeletal: Reports no additional musculoskeletal complaints Integumentary/Breasts: Skin/Breast: Reports system reviewed and no additional complaints, except as docu Neurologic: Reports system reviewed and no additional complaints, except as documented Psychiatric: Psychiatric: Reports no additional psychiatric complaints Allergic/Immunologic: Allergic/Immunologic: Reports no additional allergic/immunologic complaints PMFSH Past Medical History Medical History Hemorrhoids Normal vaginal delivery X2 depression Surgical History Surgical History History of tonsillectomy Family History Family History Father Unknown family medical history Mother , Drug overdose Medical history unknown Social History Social History Years smoked: 8 Smoking status: Current every day smoker Tobacco type: cigarettes Second hand tobacco smoke exposure: No Alcohol intake: never Substance use: never Living arrangements: with family Additional living arrangements comments: lives with grandmother and children Occupation/Education: unemployed Gender identity (if verbalized by the patient): Female Sexual Orientation (if Verbalized by the Patient): Straight or Heterosexual Comments At the time of my signature, I reviewed and agree with the nursing past medical, surgical, social, and family history. There is no relevant family history pertinent to the patient complaint. Exam Const: General: cooperative, healthy appearing, comfortable, no acute distress, well developed, alert and well nourished Nutritional Appearance: well nourished Orientation/consciousness: patient oriented x3 Limitations: no limitations HENMT: Head: normal to inspection Ears: hearing grossly normal bilaterally, external ears normal, TM's normal bilaterally, EAC's normal, mastoids normal and no periauricul
[2023-09-07 12:18] VITALS: BP 132/81; PULSE 60
[2023-09-07 12:19] VITALS: BP 125/79; PULSE 63
[2023-09-07 12:20] VITALS: BP 125/78; PULSE 67
== END 2023-09-07 12:42 | disposition home or self-care (01) ==
PROVIDERS: Emergency Provider Nurse Practitioner; PCP Physician Assistant
DX: K52.9 Noninfective gastroenteritis and colitis, unspecified (principal); R51.9 Headache, unspecified; F17.210 Nicotine dependence, cigarettes, uncomplicated
CPT/HCPCS: 99213; G0463

== ENCOUNTER 2023-10-17 11:31 | Emergency (ER) | payer OTHER, SELFPAY ==
[2023-10-17 11:38] VITALS: BP 104/56; PULSE 73; RESP 18; TEMP 36.7; O2SAT 100
[2023-10-17 11:41] VITALS: BP 104/56; PULSE 73; RESP 18; TEMP 36.7; O2SAT 100
--- NOTE | 2023-10-17 11:42 | ED.SKABFB ---
HPI - Skin/Abscess/Foreign Bdy General Chief complaint: Skin/Abscess/Foreign Body Stated complaint: rash on body Time Seen by Provider: 10/17/23 12:24 Source: patient, RN notes reviewed and old records reviewed Mode of arrival: ambulatory Limitations: no limitations History of Present Illness HPI narrative: 27-year-old female presents to the [facility] with complaints of a rash for the last 3 days. No treatment prior to arrival. States this is the 3rd time since 2021 she has had a similar rash. Did see her primary this 2nd time it occurred. There was no treatment because the rash went away by itself. Describes it is being very itchy. Denies any new creams, lotions, detergents. No new foods. Related Data Home Medications Medication Instructions Recorded Confirmed quetiapine 50 mg tablet 100 mg PO DAILY 06/13/21 10/17/23 norethindrone 1 mg-ethinyl 1 tablet DIRECTED 04/10/23 10/17/23 estradiol 20 mcg (24)-iron 75 mg (4) tablet (Galo 24 Fe) lamotrigine 100 mg tablet 100 mg DIRECTED 09/07/23 10/17/23 escitalopram oxalate 10 mg tablet 10 mg PO DAILY 10/17/23 10/17/23 Allergies Allergy/AdvReac Type Severity Reaction Status Date / Time morphine Allergy Intermediate Swelling Verified 10/17/23 11:39 Review of Systems Review of Systems: All systems reviewed & are unremarkable except as noted in HPI and below Constitutional: Constitutional: Reports no additional constitutional complaints Eyes: Eyes: Reports no additional eye complaints ENT: Reports system reviewed and no additional complaints, except as documented Cardiovascular: Cardiovascular: Reports no additional cardiovascular complaints, Denies chest pain and Denies dyspnea Respiratory: Respiratory: Reports no additional respiratory complaints, Denies chest congestion, Denies cough and Denies dyspnea Gastrointestinal: Gastrointestinal: Reports no additional gastrointestinal complaints, Denies abdominal pain, Denies nausea and Denies vomiting Musculoskeletal: Musculoskeletal: Reports no additional musculoskeletal complaints Integumentary/Breasts: Skin/Breast: Reports as per HPI Neurologic: Reports system reviewed and no additional complaints, except as documented Psychiatric: Psychiatric: Reports no additional psychiatric complaints Allergic/Immunologic: Allergic/Immunologic: Reports no additional allergic/immunologic complaints PMFSH Past Medical History Medical History Hemorrhoids Normal vaginal delivery X2 depression Surgical History Surgical History History of tonsillectomy Family History Family History Father Unknown family medical history Mother , Drug overdose Medical history unknown Social History Social History Years smoked: 8 Smoking status: Current every day smoker Tobacco type: cigarettes Second hand tobacco smoke exposure: No Alcohol intake: never Substance use: never Living arrangements: with family Additional living arrangements comments: lives with grandmother and children Occupation/Education: unemployed Gender identity (if verbalized by the patient): Female Sexual Orientation (if Verbalized by the Patient): Straight or Heterosexual Comments At the time of my signature, I reviewed and agree with the nursing past medical, surgical, social, and family history. There is no relevant family history pertinent to the patient complaint. Exam Const: General: cooperative, healthy appearing, comfortable, no acute distress, well developed, alert and well nourished Nutritional Appearance: well nourished Orientation/consciousness: patient oriented x3 Limitations: no limitations HENMT: Head: normal to inspection Ears: hearing grossly normal bilaterally and external
== END 2023-10-17 12:38 | disposition home or self-care (01) ==
PROVIDERS: Emergency Provider Nurse Practitioner; PCP Physician Assistant
DX: L50.9 Urticaria, unspecified (principal); F17.210 Nicotine dependence, cigarettes, uncomplicated
CPT/HCPCS: 99213; G0463

== ENCOUNTER 2023-12-26 15:57 | Outpatient (CLI) | payer OTHER, SELFPAY ==
--- NOTE | ~2023-12-26 | US_ITS ---
EXAMINATION: US pelvic complete w TV DATE: 12/26/2023 16:37 INDICATION: PELVIC PAIN TECHNIQUE: Multiple transabdominal and endovaginal sonographic images of the pelvis were obtained. COMPARISON: CT abdomen pelvis 09/21/2011 FINDINGS: Uterus: 9.8 x 3.1 x 5.6 cm. Endometrial complex measures 3 mm. Right Ovary: 3.3 x 1.9 x 1.7 cm. Vascular flow is present. Left Ovary: 1.4 x 3.0 x 1.3 cm. Vascular flow is present. There is small volume free fluid in the pelvis, within physiologic range. IMPRESSION: Normal pelvic sonogram findings. Reviewed, dictated and finalized at location [facility].
== END 2023-12-26 15:58 | disposition home or self-care (01) ==
LOC: ANHIMG 15:57
PROVIDERS: PCP Physician Assistant; Visit Provider Nurse Practitioner
DX: R10.2 Pelvic and perineal pain (principal)
CPT/HCPCS: 76830; 76856

== ENCOUNTER 2024-02-04 13:51 | Emergency (ER) | payer OTHER, SELFPAY ==
[2024-02-04 14:00] VITALS: BP 124/71; PULSE 83; RESP 18; TEMP 36.9; O2SAT 100
[2024-02-04 14:15] LABS: EDUAAPPEAR Clear; EDUABILI Negative; EDUABLOOD Negative; EDUACOLOR1 Yellow; EDUAGLUCOSE Negative; EDUAKETONE Negative; EDUALEUKO 1+; EDUANITRATE Negative; EDUAPROTEIN Negative; EDUASPGRAVITY 1.025; EDUAUROBILI 0.2
--- NOTE | 2024-02-04 14:20 | ED.ABDPAIN ---
HPI - Abdominal Pain General Chief Complaint: Urogenital-Female Stated Complaint: UTI/Vaginal Problems Time Seen by Provider: 02/04/24 14:20 Source: patient, RN notes reviewed and old records reviewed Mode of arrival: ambulatory Limitations: no limitations History of Present Illness HPI narrative: Patient presents with complaints of tingling in her vagina. She reports symptoms have been present for 2 weeks. 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 She is currently taking Flagyl. She has an OBGYN appointment on February 05. She reports symptoms today are no worse than they have been over the past 2 weeks. She denies any fever, chills, sweats. Related Data Home Medications Medication Instructions Recorded Confirmed quetiapine 50 mg tablet 100 mg PO DAILY 06/13/21 02/04/24 norethindrone 1 mg-ethinyl 1 tablet PO DAILY 04/10/23 02/04/24 estradiol 20 mcg (24)-iron 75 mg (4) tablet (Gaol 24 Fe) lamotrigine 100 mg tablet 100 mg PO DAILY 09/07/23 02/04/24 escitalopram oxalate 10 mg tablet 10 mg PO DAILY 10/17/23 02/04/24 Allergies Allergy/AdvReac Type Severity Reaction Status Date / Time morphine Allergy Intermediate Swelling Verified 02/04/24 13:53 Review of Systems Review of Systems: All systems reviewed & are unremarkable except as noted in HPI and below Constitutional: Constitutional: Reports as per HPI and Reports no additional constitutional complaints ENT: Reports system reviewed and no additional complaints, except as documented Cardiovascular: Cardiovascular: Reports no additional cardiovascular complaints Respiratory: Respiratory: Reports no additional respiratory complaints Gastrointestinal: Gastrointestinal: Reports no additional gastrointestinal complaints Genitourinary: Genitourinary: Reports no additional female genitourinary complaints and Reports as per HPI [facility] Past Medical History Medical History Hemorrhoids Normal vaginal delivery X2 depression Surgical History Surgical History History of tonsillectomy Family History Family History Father Unknown family medical history Mother , Drug overdose Medical history unknown Social History Social History Years smoked: 8 Smoking status: Current every day smoker Tobacco type: cigarettes Second hand tobacco smoke exposure: No Alcohol intake: never Substance use: never Living arrangements: with family Additional living arrangements comments: lives with grandmother and children Occupation/Education: unemployed Gender identity (if verbalized by the patient): Female Sexual Orientation (if Verbalized by the Patient): Straight or Heterosexual Exam Const: General: cooperative, no acute distress, alert and awake Orientation/consciousness: oriented to person, oriented to place and oriented to time HENMT: Head: normal to inspection Resp: Effort & Inspection: normal respiratory effort and able to speak in complete sentences Auscultation: clear to auscultation bilaterally, no crackles, no rales, no rhonchi and no wheezes Cardio: Palpation: normal PMI Rate: regular rate Rhythm: regular rhythm Heart sounds: S1 normal heart sound present and S2 normal heart sound present Neuro: General: oriented to person, oriented to place and oriented to time Cranial nerves: Yes CN's II-XII intact bilaterally Psych: Appearance: grossly normal Thought process: Normal thought process present Insight: Good insight present (Psych) Judgement: Good judgement present (Psych) Course Course Level of Care: Express Care Visit Vital Signs Vital signs: Vital Signs Temperature 98.5 F 02/04/24 14:00 Pulse Rate 83 02/04/24 14:00 Respiratory Rate 18 02/04/24 14:00 Blood Pressure
== END 2024-02-04 14:35 | disposition home or self-care (01) ==
PROVIDERS: Emergency Provider Nurse Practitioner Family; PCP Physician Assistant
DX: R20.2 Paresthesia of skin (principal); F17.210 Nicotine dependence, cigarettes, uncomplicated
CPT/HCPCS: 81003; 87086; 99213; G0463

== ENCOUNTER 2025-02-16 10:17 | Emergency (ER) | payer OTHER, SELFPAY ==
[2025-02-16 10:26] VITALS: BP 111/72; PULSE 94; RESP 18; TEMP 36.4; O2SAT 99
--- NOTE | 2025-02-16 11:08 | ED.SKABFB ---
HPI - Skin/Abscess/Foreign Bdy General Chief complaint: Skin/Abscess/Foreign Body Stated complaint: Rash Time Seen by Provider: 02/16/25 11:08 Source: patient Mode of arrival: ambulatory Limitations: no limitations History of Present Illness HPI narrative: 29-year-old female presents with complaint of rash and itching to bilateral armpits for over 2 weeks. Patient switched due to rinse thinking it was may be related to allergic reaction. Not improving. Patient is currently . All systems reviewed and negative except as noted above. Related Data Home Medications ?Medication ?Instructions ?Recorded ?Confirmed ?Last Taken ?Type quetiapine 50 mg tablet 100 mg PO DAILY 06/13/21 02/04/24 Unknown History norethindrone 1 mg-ethinyl 1 tablet PO DAILY 04/10/23 02/04/24 Unknown History estradiol 20 mcg (24)-iron 75 mg (4) tablet (Galo 24 Fe) lamotrigine 100 mg tablet 100 mg PO DAILY 09/07/23 02/04/24 Unknown History escitalopram oxalate 10 mg tablet 10 mg PO DAILY 10/17/23 02/04/24 Unknown History aripiprazole 10 mg tablet mg 02/16/25 Unknown History ferrous sulfate 325 mg (65 mg mg PO 02/16/25 Unknown History iron) tablet,delayed release vitamins with calcium tablet 02/16/25 Unknown History no.72-iron 27 mg-folic acid 1 mg tablet (M- Plus) Allergies Allergy/AdvReac Type Severity Reaction Status Date / Time morphine Allergy Intermediate Swelling Verified 02/16/25 10:23 [facility] Past Medical History Medical History Hemorrhoids Normal vaginal delivery X2 depression Surgical History Surgical History History of tonsillectomy Family History Family History Father Unknown family medical history Mother , Drug overdose Medical history unknown Social History Social History Years smoked: 8 Smoking status: Current every day smoker Tobacco type: cigarettes Second hand tobacco smoke exposure: No Alcohol intake: never Substance use: never Living arrangements: with family Additional living arrangements comments: lives with grandmother and children Occupation/Education: unemployed Gender identity (if verbalized by the patient): Female Sexual Orientation (if Verbalized by the Patient): Straight or Heterosexual Comments At time of signature, agree with nursing past medical, surgical, social and family history. There is no relevant family history pertinent to the presenting complaint. Exam Narrative: GENERAL: This is a well-nourished, well-developed patient, in no apparent distress. HEAD: normocephalic, atraumatic. EYES: PERRL. Sclera clear/white. Vision is grossly intact. EARS: External ears normal NOSE: External nose normal NECK: Neck supple, non-tender without lymphadenopathy, masses or thyromegaly. CARDIOVASCULAR: Regular rate and rhythm without murmurs, gallops, or rubs. RESPIRATORY: Clear to auscultation. Breath sounds equal bilaterally. No wheezes, rales, or rhonchi. SKIN: warm, Dry, intact, good texture and turgor. Erythematous rash to bilateral axilla. Tender on palpation. No fluctuance, swelling or drainage concerning for abscess. NEURO: awake, alert, and oriented to person, place and time. There were no obvious focal neurologic abnormalities. EXTREMITIES: No joint tenderness, effusion, or edema noted. Course Course Level of Care: Express Care Visit Vital Signs Vital signs: Vital Signs Temperature 36.4 C 02/16/25 10:26 Pulse Rate 94 02/16/25 10:26 Respiratory Rate 18 02/16/25 10:26 Blood Pressure 111/72 02/16/25 10:26 Pulse Oximetry 99 02/16/25 10:26 Oxygen Delivery Room Air 02/16/25 10:26 Temperature 36.4 C 02/16/25 10:26 Pulse Rate 94 02/16/25 10:26 Respiratory Rate 18 02/16/25 10:26 Blood Pressure 111/72 02/16/25 10:26 Pulse Oximetry 99 02/16/25 10:26 Oxygen Delivery Room Air 02/16/25 10:26 Reviewed MDM - Skin/Abscess/Foreign Bdy MDM Narrative Medical decision making narrative: will treat rash to bilateral armpits with antifungal and steroid cream. Patient agrees with plan of care. Differential Diagnosis Differential diagnosis: Likely abscess of skin or subcutaneous tissue, urticaria, cellulitis, eczema and contact dermatitis Discharge Plan Discharge Clinical Impression: Fungal infection Patient Disposition: Home Condition: Stable Instructions: Antibiotic Form Additional Instructions: Wash affected area twice daily with soap and water. Pat dry with towel. Apply creams as prescribed. Avoid shaving or using deodorant until all symptoms have resolved. See your primary care physician if not improving. Patient Language: Venezuelan Prescriptions: New ketoconazole 2 % cream 1 applic topical TID 10 Days Qty: 30 0RF triamcinolone acetonide 0.1 % cream 1 applic topical TID PRN (Reason: itching) Qty: 30 0RF No Action norethindrone-e.estradiol-iron [Galo 24 Fe] 1 mg-20 mcg (24)/75 mg (4) tablet 1 tablet PO DAILY lamotrigine 100 mg tablet 100 mg PO DAILY quetiapine 50 mg tablet 100 mg PO DAILY escitalopram oxalate 10 mg tablet 10 mg PO DAILY ferrous sulfate 325 mg (65 mg iron) tablet,delayed release (DR/EC) PO aripiprazole 10 mg tablet M-Reginaldo Plus 27 mg iron- 1 mg tablet epinephrine [EpiPen] 0.3 mg/0.3 mL auto-injector 0.3 mg IM ONCE Qty: 2 0RF Rx Instructions: as a single dose; may repeat once albuterol sulfate 90 mcg/actuation HFA aerosol inhaler 2 puff inhalation QID PRN (Reason: shortness of breath or wheezing) Qty: 8.5 0RF Follow-up/Referrals: Adonay,ARI Rutledge [Primary Care Provider, [facility]] Time of Disposition: 11:17
== END 2025-02-16 11:20 | disposition home or self-care (01) ==
PROVIDERS: Emergency Provider Nurse Practitioner Family; PCP Physician Assistant
DX: B36.9 Superficial mycosis, unspecified (principal); F17.210 Nicotine dependence, cigarettes, uncomplicated
CPT/HCPCS: 99213; G0463